=== PATIENT | female | born 1990 | race Caucasian/White ===

== ENCOUNTER → 2017-06-09 | Outpatient (REF) | payer OTHER ==
[2017-06-09 13:30] LABS: BASO % 0.5 % (0.0-1.0); EOS # 0.2 10^3/uL (0.0-0.50); EOS % 2.4 % (0.0-3.0); IMMATURE GRANULOCYTE % 0.2 % (0-0); LYMPH # 2.2 10^3/uL (1.5-6.5); LYMPH % 25.4 % (24.0-44.0); MEAN CORPUSCULAR HEMOGLOBIN 29.8 pg (27.0-33.0); MEAN CORPUSCULAR HGB CONC 34.6 g/dl (32.0-36.5); MEAN CORPUSCULAR VOLUME 86.2 fl (80.0-96.0); MONO # 0.5 10^3/uL (0.0-0.8); NEUTROPHILS # 5.8 10^3/uL (1.8-7.7); NEUTROPHILS % 65.5 % (36.0-66.0); PLATELET COUNT, AUTOMATED 362 10^3/uL (150-450); RED CELL DISTRIBUTION WIDTH 11.6 % (11.5-14.5); WHITE BLOOD COUNT 8.8 10^3/uL (4.0-10.0)
[2017-06-09 14:27] LABS: PROGESTERONE 14.7 NG/ML
[2017-06-09 14:28] LABS: PROLACTIN 16.1 NG/ML
[2017-06-09 14:29] LABS: ESTRADIOL 79.8 PG/ML; FOLLICLE STIMULATING HORMONE 3.6 mIU/mL; LUTEINIZING HORMONE 4.4 mIU/mL
[2017-06-09 14:32] LABS: ALBUMIN 4.2 GM/DL (3.2-5.2); ALBUMIN/GLOBULIN RATIO 1.31 (1.00-1.93); ALKALINE PHOSPHATASE 55 U/L (45-117); ALT/SGPT 19 U/L (12-78); ANION GAP 7 MEQ/L (8-16); AST/SGOT 17 U/L (7-37); BILIRUBIN,TOTAL 0.4 MG/DL (0.2-1.0); BLOOD UREA NITROGEN 16 MG/DL (7-18); CALCIUM LEVEL 8.5 MG/DL (8.5-10.1); CARBON DIOXIDE LEVEL 25 MEQ/L (21-32); CHLORIDE LEVEL 107 MEQ/L (98-107); CREATININE FOR GFR 0.71 MG/DL (0.55-1.02); GLOMERULAR FILTRATION RATE > 60.0 (>60); GLUCOSE, FASTING 83 MG/DL (70-105); HCG, SERUM QUANTITATIVE 2 MIU/ML; POTASSIUM SERUM 4.3 MEQ/L (3.5-5.1); SODIUM LEVEL 139 MEQ/L (136-145); TOTAL PROTEIN 7.4 GM/DL (6.4-8.2)
[2017-06-12 00:06] LABS: # NK (CD56/16) 219 /uL (24-406); % NK (CD56/16) 9.5 % (1.4-19.4); BASO # 0.1 x10E3/uL (0.0-0.2); EOS # 0.2 x10E3/uL (0.0-0.4); HCT 44.6 % (34.0-46.6); HGB 14.7 g/dL (11.1-15.9); IMMATURE GRANULOCYTES 0 % (Not Estab.); LYMPH # 2.3 x10E3/uL (0.7-3.1); MONO # 0.3 x10E3/uL (0.1-0.9); WBC 8.9 x10E3/uL (3.4-10.8)
== END ==
LOC: M LABDRWAD 12:39
PROVIDERS: ATTEND Obstetrics & Gynecology Reproductive Endocrinology
DX: Z31.41 Encounter for fertility testing (principal)

== ENCOUNTER → 2017-09-09 | Outpatient (CLI) | payer BC, OTHER ==
[2017-09-09 11:15] LABS: PROGESTERONE 30.2 NG/ML
[2017-09-09 11:28] LABS: HCG, SERUM QUANTITATIVE 104 MIU/ML
== END ==
LOC: M SMT 08:05
DX: E28.9 Ovarian dysfunction, unspecified (principal)
CPT/HCPCS: 84702

== ENCOUNTER → 2017-09-11 | Outpatient (REF) | payer OTHER ==
[2017-09-11 13:23] LABS: HCG, SERUM QUANTITATIVE 245 MIU/ML
== END ==
LOC: M LABDRWAD 12:11
DX: Z32.01 Encounter for pregnancy test, result positive (principal)

== ENCOUNTER → 2017-11-12 | Outpatient (CLI) | payer BC, OTHER ==
[2017-11-12 18:13] LABS: BASO % 0.2 % (0.0-1.0); EOS # 0.1 10^3/uL (0.0-0.50); EOS % 1.1 % (0.0-3.0); HEMATOCRIT 38.3 % (36.0-47.0); IMMATURE GRANULOCYTE % 0.5 % (0-3.0); LYMPH # 2.1 10^3/uL (1.5-6.5); LYMPH % 16.4 % (24.0-44.0); MEAN CORPUSCULAR HEMOGLOBIN 29.7 pg (27.0-33.0); MEAN CORPUSCULAR HGB CONC 33.9 g/dl (32.0-36.5); MEAN CORPUSCULAR VOLUME 87.6 fl (80.0-96.0); MONO # 0.6 10^3/uL (0.0-0.8); MONO % 4.9 % (0.0-5.0); NEUTROPHILS % 76.9 % (36.0-66.0); PLATELET COUNT, AUTOMATED 365 10^3/uL (150-450); RED BLOOD COUNT 4.37 10^6/uL (4.00-5.40); RED CELL DISTRIBUTION WIDTH 11.7 % (11.5-14.5)
[2017-11-12 20:59] LABS: CHLAMYDIA DNA AMPLIFICATION NEGATIVE (NEGATIVE); GC DNA AMPLIFICATION NEGATIVE (NEGATIVE)
[2017-11-13 12:05] LABS: RUBELLA IgG QUALITATIVE IMMUNE (IMMUNE)
[2017-11-13 12:14] LABS: HBsAg Prenatal NEGATIVE (NEGATIVE)
[2017-11-13 12:37] LABS: HIV 1&2 SCREEN CENTAUR NEGATIVE (NEGATIVE)
== END ==
LOC: M SMT 13:27
DX: Z36.89 Encounter for other specified antenatal screening (principal); Z3A.13 13 weeks gestation of pregnancy
CPT/HCPCS: 86762

== ENCOUNTER → 2017-12-18 | Outpatient (CLI) | payer BC, OTHER | LOC: M RAD 07:41 | DX: Z34.83 Encounter for supervision of other normal pregnancy, third trimester (principal); Z36.89 Encounter for other specified antenatal screening; Z3A.18 18 weeks gestation of pregnancy | CPT/HCPCS: 76811 ==

== ENCOUNTER → 2018-01-08 | Outpatient (REF) | payer BC, OTHER | LOC: M LAB REF 17:14 | DX: Z34.82 Encounter for supervision of other normal pregnancy, second trimester (principal); Z3A.00 Weeks of gestation of pregnancy not specified ==

== ENCOUNTER → 2018-01-13 | Outpatient (CLI) | payer BC, OTHER | LOC: M RAD 07:23 | DX: Z34.82 Encounter for supervision of other normal pregnancy, second trimester (principal); Z3A.22 22 weeks gestation of pregnancy | CPT/HCPCS: 76816 ==

== ENCOUNTER → 2018-03-03 | Outpatient (CLI) | payer BC, OTHER ==
[2018-03-03 16:32] LABS: HEMATOCRIT 34.6 % (36.0-47.0); HEMOGLOBIN 11.7 g/dl (12.0-15.5); MEAN CORPUSCULAR HEMOGLOBIN 29.5 pg (27.0-33.0); MEAN CORPUSCULAR HGB CONC 33.8 g/dl (32.0-36.5); MEAN CORPUSCULAR VOLUME 87.4 fl (80.0-96.0); PLATELET COUNT, AUTOMATED 326 10^3/uL (150-450); RED BLOOD COUNT 3.96 10^6/uL (4.00-5.40); RED CELL DISTRIBUTION WIDTH 11.9 % (11.5-14.5); WHITE BLOOD COUNT 14.9 10^3/uL (4.0-10.0)
[2018-03-03 17:28] LABS: GLUCOSE CHALLENGE TEST 1 HOUR 107 MG/DL (LESS THAN 140)
== END ==
LOC: M LAB 15:09
DX: Z34.82 Encounter for supervision of other normal pregnancy, second trimester (principal)
CPT/HCPCS: 82950

== ENCOUNTER → 2018-04-20 | Outpatient (REF) | payer OTHER | LOC: M LAB REF 17:02 | DX: O09.813 Supervision of pregnancy resulting from assisted reproductive technology, third trimester (principal) ==

== ENCOUNTER 2018-05-26 10:28 | Inpatient (IN) | payer BC, OTHER ==
[2018-05-26] MEDS: LACTATED RINGER'S 1000 ML IV (11:39)
[2018-05-26 11:55] LABS: HEMATOCRIT 36.5 % (36.0-47.0); HEMOGLOBIN 12.1 g/dl (12.0-15.5); MEAN CORPUSCULAR HGB CONC 33.2 g/dl (32.0-36.5); MEAN CORPUSCULAR VOLUME 78.5 fl (80.0-96.0); PLATELET COUNT, AUTOMATED 338 10^3/uL (150-450); RED BLOOD COUNT 4.65 10^6/uL (4.00-5.40); RED CELL DISTRIBUTION WIDTH 13.7 % (11.5-14.5); WHITE BLOOD COUNT 12.3 10^3/uL (4.0-10.0)
[2018-05-26] MEDS: miSOPROStol 50 MCG 1/2 TAB (S0191) SL (12:07)
[2018-05-26] MEDS: OXYTOCIN DRIP 30 UNITS in APPROPRIATE DILUENT 1 EA IV ×2 (18:23→18:27)
[2018-05-26] MEDS: LR 1,000 ML IV (18:28)
[2018-05-26] MEDS: PROMETHAZINE INJ 25 MG/ML VIAL (J2550) IV (22:32)
[2018-05-26] MEDS: BUTORPHANOL 2 MG/ML INJ (J0595) IV (22:32)
[2018-05-26] MEDS: PENICILLIN G POTASSIUM IV 5 MU in D5W MINI-BAG PLUS 100 ML IV (22:46)
[2018-05-27] MEDS ORDERED: FENTANYL 2MCG/ML ROPIVACAINE 0.2% IN 0.9% NACL 100ML IVBAG As Ordered (01:59)
[2018-05-27] MEDS: PENICILLIN G POTASSIUM IV 2.5 MU in APPROPRIATE DILUENT 1 EA IV (02:41)
[2018-05-27] MEDS: LR 1,000 ML IV ×3 (02:41→16:58)
[2018-05-27] MEDS ORDERED: ONDANSETRON 4MG/2ML VIAL (J2405) IV ×4 (03:15→09:15)
[2018-05-27] MEDS ORDERED: EPIDURAL COMMENT XX (03:15)
[2018-05-27] MEDS ORDERED: REFRIGERATOR IV KEYS XX (03:15)
[2018-05-27] MEDS ORDERED: diphenhydrAMINE INJ 50MG/ML VIAL (J1200) IV (03:15)
[2018-05-27] MEDS ORDERED: LACTATED RINGER'S 1000 ML IV (03:15)
[2018-05-27] MEDS ORDERED: NALOXONE INJ 0.4 MG/1 ML VIAL (J2310) IV ×3 (03:15→07:30)
[2018-05-27] MEDS ORDERED: EPIDURAL/PCA KEYS XX (03:15)
[2018-05-27] MEDS: FENTANYL/ROPIVACAINE/NACL BAG 100 ML EPIDURAL (03:15)
[2018-05-27] MEDS: ePHEDrine SULFATE 25 MG/5 ML(5MG/ML) SYRINGE IV (04:44)
[2018-05-27] MEDS ORDERED: BICITRA 30ML SOLN UDC As Ordered (07:18)
[2018-05-27] MEDS ORDERED: ceFAZolin 2 GM/D5W 50 ML IV BAG (J0690 PER 500MG) As Ordered (07:18)
[2018-05-27] MEDS ORDERED: METOCLOPRAMIDE INJ 10MG/2ML VIAL (J2765) IV (07:30)
[2018-05-27] MEDS ORDERED: NALBUPHINE HCL 10 MG/ML AMP (J2300) IV ×2 (07:30→09:15)
[2018-05-27] MEDS: BICITRA 30ML SOLN UDC PO (07:35)
[2018-05-27] MEDS ORDERED: MORPHINE PRES-FREE INJ 10 MG/10 ML VIAL (J2274) As Ordered ×2 (07:48→07:49)
[2018-05-27] MEDS ORDERED: LIDOCAINE 2% W/EPIN INJ 20ML **PRES FREE As Ordered ×2 (07:52→07:54)
[2018-05-27] MEDS ORDERED: OXYTOCIN INJ 10 UNITS/ML VIAL (J2590) As Ordered (07:54)
[2018-05-27] MEDS ORDERED: ONDANSETRON 4MG/2ML VIAL (J2405) As Ordered (07:54)
[2018-05-27] MEDS ORDERED: KETOROLAC 60 MG/2 ML VIAL (J1885) As Ordered (07:54)
[2018-05-27] MEDS: AZITHROMYCIN INJ 500 MG, VIAL MATE ADAPTER 1 EACH in D5W 250 ML IV (07:56)
[2018-05-27] MEDS ORDERED: MEPERIDINE 50 MG/ML 1ML VIAL (J2175) As Ordered (08:45)
[2018-05-27 09:00] LABS: CORD GAS ABE A -2.1; CORD GAS HCO3 A 28.9 MEQ/L; CORD GAS O2 SAT A < 15.0 %; CORD GAS PH A 7.192 UNITS; CORD GAS TCO2 A 31.2 MEQ/L
[2018-05-27] MEDS ORDERED: INFLUENZA QUADRIVALENT PF VACCINE 0.5ML SYRINGE (90686) IM (09:00)
[2018-05-27] MEDS ORDERED: PROMETHAZINE 25 MG TAB PO (09:00)
[2018-05-27] MEDS: PRENATAL VITAMINS CHEWABLE TABLET PO (09:00)
[2018-05-27] MEDS ORDERED: PERCOCET 5MG/325MG TAB PO (09:00)
[2018-05-27] MEDS: DOCUSATE SODIUM 100 MG CAP PO ×2 (09:00→19:35)
[2018-05-27 09:04] LABS: CORD GAS ABE V -3.3; CORD GAS HCO3 V 23.3 MEQ/L; CORD GAS O2 SAT V 70.9 %; CORD GAS PCO2 V 46.9 mmHg; CORD GAS PH V 7.314 UNITS; CORD GAS PO2 V 34.3 mmHg; CORD GAS TCO2 V 24.7 MEQ/L
[2018-05-27] MEDS ORDERED: OXYTOCIN 30 UNITS IN 0.9% NaCl 500ML IV BAG (J2590) As Ordered (09:04)
[2018-05-27] MEDS ORDERED: fentaNYL 100 MCG/2 ML INJECTION (J3010) IV (09:15)
[2018-05-27] MEDS: OXYTOCIN DRIP 30 UNITS in APPROPRIATE DILUENT 1 EA IV (09:59)
[2018-05-27] MEDS: PERCOCET 5MG/325MG TAB PO (11:10)
[2018-05-27] MEDS ORDERED: BUPIVACAINE/DEXTROSE 0.75% 2 ML AMP As Ordered (12:32)
[2018-05-27] MEDS: KETOROLAC 30 MG/ML VIAL (J1885) IV ×2 (13:47→19:36)
[2018-05-28] MEDS: KETOROLAC 30 MG/ML VIAL (J1885) IV (02:27)
[2018-05-28 06:56] LABS: HEMATOCRIT 28.8 % (36.0-47.0); HEMOGLOBIN 9.1 g/dl (12.0-15.5); MEAN CORPUSCULAR HEMOGLOBIN 25.9 pg (27.0-33.0); MEAN CORPUSCULAR HGB CONC 31.6 g/dl (32.0-36.5); MEAN CORPUSCULAR VOLUME 81.8 fl (80.0-96.0); PLATELET COUNT, AUTOMATED 244 10^3/uL (150-450); RED BLOOD COUNT 3.52 10^6/uL (4.00-5.40); RED CELL DISTRIBUTION WIDTH 13.9 % (11.5-14.5); WHITE BLOOD COUNT 12.8 10^3/uL (4.0-10.0)
[2018-05-28] MEDS: PRENATAL VITAMINS CHEWABLE TABLET PO (09:33)
[2018-05-28] MEDS: IBUPROFEN 800 MG TAB PO ×2 (09:34→17:05)
[2018-05-28] MEDS: DOCUSATE SODIUM 100 MG CAP PO ×2 (09:34→21:22)
[2018-05-28] MEDS: INFLUENZA QUADRIVALENT PF VACCINE 0.5ML SYRINGE (90686) IM (10:18)
[2018-05-28] MEDS: RHOGAM 300 MCG (1500 IU) INJ (J2790) IM (16:16)
[2018-05-28] MEDS: MEASLES,MUMPS,RUBELLA VACCINE INJ (MMR-II) (90707) SC (16:16)
[2018-05-29] MEDS: IBUPROFEN 800 MG TAB PO ×2 (01:16→09:43)
[2018-05-29] MEDS: DOCUSATE SODIUM 100 MG CAP PO (08:39)
[2018-05-29] MEDS: PRENATAL VITAMINS CHEWABLE TABLET PO (08:39)
== END 2018-05-29 11:30 | disposition home or self-care (01) | DRG 540 ==
LOC: M LDI 10:28 → M OBS 05-27 10:14
PROVIDERS: Advanced Practice Midwife
PROC: 10D00Z1 Extraction of Products of Conception, Low, Open Approach (ICD-10-PCS; principal; 2018-05-27 07:44)
PROC: 10907ZC Drainage of Amniotic Fluid, Therapeutic from Products of Conception, Via Natural or Artificial Opening (ICD-10-PCS; 2018-05-27 07:44)
PROC: 3E0P7GC Introduction of Other Therapeutic Substance into Female Reproductive, Via Natural or Artificial Opening (ICD-10-PCS; 2018-05-27 07:44)
DX: O48.0 Post-term pregnancy (principal); Z3A.41 41 weeks gestation of pregnancy; O99.824 Streptococcus B carrier state complicating childbirth; O62.0 Primary inadequate contractions; O76 Abnormality in fetal heart rate and rhythm complicating labor and delivery; Z37.0 Single live birth

== ENCOUNTER → 2018-09-14 | Outpatient (REF) | payer OTHER ==
[~2018-09-14] MED LIST: IBUP-1114 PO; OXYC1TAB23 PO; PRENTAB9 PO
[2018-09-14 20:46] LABS: CHLAMYDIA DNA AMPLIFICATION NEGATIVE (NEGATIVE); GC DNA AMPLIFICATION NEGATIVE (NEGATIVE)
== END ==
LOC: M LAB REF 17:11
PROVIDERS: ATTEND Obstetrics & Gynecology
DX: Z12.4 Encounter for screening for malignant neoplasm of cervix (principal); Z11.3 Encounter for screening for infections with a predominantly sexual mode of transmission
CPT/HCPCS: 87661; G0123

== ENCOUNTER → 2019-07-18 | Outpatient (CLI) | payer BC, OTHER ==
--- NOTE | 2019-07-19 02:28 | REP ---
Clinical: Lower back pain . Technique: AP, lateral, bilateral oblique, and coned-down views. Findings: Alignment and lordosis is maintained. The vertebral bodies including transverse process and spinous processes are intact and normal. There is no evidence for acute fracture / compression injury or subluxation. No evidence for spondylolysis or spondylolisthesis. No significant degenerative change is noted. Impression: Normal lumbosacral spine radiograph series. Electronically Signed by Anthony Quiroz MD 07/19/2019 02:19 A
== END ==
LOC: M WUC 12:29
PROVIDERS: ATTEND Nurse Practitioner Family
DX: M54.5 Low back pain (principal)

== ENCOUNTER → 2020-02-21 | Outpatient (CLI) | payer BC ==
[2020-02-21 12:02] LABS: ESTRADIOL 33.9 PG/ML; PROGESTERONE 35.9 NG/ML
== END ==
LOC: M LAB 07:32
PROVIDERS: ATTEND Obstetrics & Gynecology Reproductive Endocrinology
DX: E28.9 Ovarian dysfunction, unspecified (principal)

== ENCOUNTER → 2020-02-29 | Outpatient (CLI) | payer BC ==
[2020-02-29 08:56] LABS: HCG, SERUM QUANTITATIVE < 1.0 MIU/ML
[2020-02-29 09:24] LABS: PROGESTERONE 7.35 NG/ML
== END ==
LOC: M LAB 07:35
PROVIDERS: ATTEND Obstetrics & Gynecology Reproductive Endocrinology
DX: Z32.00 Encounter for pregnancy test, result unknown (principal)

== ENCOUNTER → 2020-03-21 | Outpatient (CLI) | payer BC ==
[2020-03-21 09:12] LABS: ESTRADIOL 171.2 PG/ML; PROGESTERONE 28.13 NG/ML
== END ==
LOC: M LAB 07:55
PROVIDERS: ATTEND Obstetrics & Gynecology Reproductive Endocrinology
DX: E28.9 Ovarian dysfunction, unspecified (principal)

== ENCOUNTER → 2020-03-26 | Outpatient (REF) | payer BC ==
[2020-03-26 13:14] LABS: PROGESTERONE 27.91 NG/ML
== END ==
LOC: M LABDRWAD 12:15
PROVIDERS: ATTEND Obstetrics & Gynecology Reproductive Endocrinology
DX: Z32.00 Encounter for pregnancy test, result unknown (principal)

== ENCOUNTER → 2020-03-28 | Outpatient (CLI) | payer BC ==
[2020-03-28 09:19] LABS: THYROID STIMULATING HORMONE 1.57 uIU/ML (0.358-3.740)
[2020-03-28 10:34] LABS: ESTRADIOL 203.1 PG/ML; PROGESTERONE 29.91 NG/ML
== END ==
LOC: M LAB 07:43
PROVIDERS: ATTEND Obstetrics & Gynecology Reproductive Endocrinology
DX: Z32.01 Encounter for pregnancy test, result positive (principal)

== ENCOUNTER → 2020-04-27 | Outpatient (CLI) | payer BC, OTHER ==
[2020-04-30 15:20] LABS: ESTRADIOL 135.9 PG/ML; PROGESTERONE 23.63 NG/ML
== END ==
LOC: M LAB 07:24
PROVIDERS: ATTEND Obstetrics & Gynecology Reproductive Endocrinology
DX: O02.1 Missed abortion (principal); E28.9 Ovarian dysfunction, unspecified

== ENCOUNTER → 2020-04-30 | Outpatient (CLI) | payer BC, OTHER ==
[2020-04-30 08:53] LABS: THYROID STIMULATING HORMONE 1.5 uIU/ML (0.358-3.740)
[2020-04-30 11:24] LABS: ESTRADIOL 178.4 PG/ML; PROGESTERONE 33.99 NG/ML
== END ==
LOC: M LAB 07:28
PROVIDERS: ATTEND Obstetrics & Gynecology Reproductive Endocrinology
DX: Z32.01 Encounter for pregnancy test, result positive (principal)

== ENCOUNTER → 2020-06-28 | Outpatient (REF) | payer OTHER ==
[2020-06-28 14:54] LABS: HEMATOCRIT 41.5 % (36.0-47.0); HEMOGLOBIN 13.5 g/dl (12.0-15.5); MEAN CORPUSCULAR HEMOGLOBIN 28.6 pg (27.0-33.0); MEAN CORPUSCULAR HGB CONC 32.5 g/dl (32.0-36.5); MEAN CORPUSCULAR VOLUME 87.9 fl (80.0-96.0); PLATELET COUNT, AUTOMATED 340 10^3/uL (150-450); RED BLOOD COUNT 4.72 10^6/uL (4.00-5.40)
[2020-06-28 16:12] LABS: HEPATITIS C VIRUS ABY INDEX < 0.0 INDEX (<0.8); HIV 1&2 SCREEN CENTAUR NEGATIVE (NEGATIVE)
[2020-06-28 16:22] LABS: CHLAMYDIA DNA AMPLIFICATION NEGATIVE (NEGATIVE); GC DNA AMPLIFICATION NEGATIVE (NEGATIVE)
== END ==
LOC: M SFHCWAGY 13:21
PROVIDERS: ATTEND Advanced Practice Midwife
DX: O09.812 Supervision of pregnancy resulting from assisted reproductive technology, second trimester (principal)

== ENCOUNTER → 2020-07-05 | Outpatient (CLI) | payer OTHER | LOC: M PLALAB 12:30 | PROVIDERS: ATTEND Advanced Practice Midwife | DX: Z34.81 Encounter for supervision of other normal pregnancy, first trimester (principal); Z3A.00 Weeks of gestation of pregnancy not specified ==

== ENCOUNTER → 2020-07-26 | Outpatient (REF) | payer OTHER | LOC: M SFHCWAGY 16:43 | PROVIDERS: ATTEND Advanced Practice Midwife | DX: O09.812 Supervision of pregnancy resulting from assisted reproductive technology, second trimester (principal) ==